=== PATIENT | male | born 1990 | race Caucasian/White ===

== ENCOUNTER 2023-03-09 08:13 | Outpatient (CLI) | payer OTHER ==
[2023-03-09 08:37] LABS: HEMOGLOBIN 13.7 g/dL (13-16.00); MEAN CELL VOLUME 91.4 fL (80.0-100.00); MEAN CORPUSCULAR HEMOGLOBIN 30.5 pg (27.00-32.0); MEAN CORPUSCULAR HGB CONC 33.4 g/dl (32.0-36.0); PLATELET COUNT 182 K/uL (150-450); RED BLOOD COUNT 4.49 M/uL (4.00-6.00)
[2023-03-09 08:59] LABS: ALBUMIN 4.3 gm/dL (3.4-5.0); BILIRUBIN TOTAL 0.44 mg/dL (0.3-1.2); CALCIUM 9.8 mg/dL (8.5-10.1); CREATININE SERUM 1.01 mg/dL (0.70-1.30); GFR 85.6; GLOBULINA 3.7 G/DL (2.4-3.5); POTASSIUM 3.59 mEq/L (3.5-5.1)
== END 2023-03-09 14:18 | disposition home or self-care (01) ==
LOC: LAB 08:13
PROVIDERS: ATTEND Anesthesiology
DX: J06.9 Acute upper respiratory infection, unspecified (principal)